=== PATIENT | female | born 1940 | race Caucasian/White ===

== ENCOUNTER 2016-11-06 09:20 | Day surgery (SDC) | payer MEDICARE, OTHER, SELFPAY ==
[2016-11-02 13:17] LABS: HEMATOCRIT 39.1 % (36.0-48.0); HEMOGLOBIN 12.6 g/dL (12.0-16.0)
[2016-11-02 13:25] LABS: BUN (BLOOD UREA NITROGEN) 15 MG/DL (6-23); CALCIUM, SERUM 8.5 MG/DL (8.5-10.4); CHLORIDE, SERUM 102 MMOL/L (96-112); CO2 (CARBON DIOXIDE) 31 MMOL/L (24-34); GFR AFRICAN AMERICAN 71 ML/MIN (>=60); GFR NON AFRICAN AMERICAN 61 ML/MIN (>=60); GLUCOSE, SERUM 88 MG/DL (60-99); POTASSIUM, SERUM 4.1 MMOL/L (3.5-5.3); SODIUM, SERUM 140 MMOL/L (135-148)
--- NOTE | ~2016-11-06 | OP ---
Record Of Operation [place] [address] [place]. [address] NAME: SUSSY HANNA : 36 STATUS : REG [facility] PAT#: [id number] AGE: 76 ADM/REG DATE : 11/06/16 MR#: [id number] REPORT SERV DATE: 11/06/16 DICTATED BY: NOLAN ALDANA DATE: 11/06/16 REPORT STATUS : Draft TRANSCRIBED BY: MODL DATE: 11/06/16 DATE OF PROCEDURE: 11/06/2016 PREOPERATIVE DIAGNOSES: 1. Recurrent left lung cancer after right primary lung cancer. 2. Need for central IV access. 3. Chronic obstructive pulmonary disease with home oxygen. 4. Congestive heart failure. 5. Morbid obesity. 6. Coronary artery disease. 7. Hyperlipidemia. 8. Hypertension. 9. Chronic pain. POSTOPERATIVE DIAGNOSES: 1. Recurrent left lung cancer after right primary lung cancer. 2. Need for central IV access. 3. Chronic obstructive pulmonary disease with home oxygen. 4. Congestive heart failure. 5. Morbid obesity. 6. Coronary artery disease. 7. Hyperlipidemia. 8. Hypertension. 9. Chronic pain. PROCEDURE: Right subclavian vein Port-A-Cath placement with intraoperative fluoroscopy. ANESTHESIA: MAC. SURGEON: Nolan Aldana M.D. INSURANCE ASSISTANT: Deshawn. COMPLICATIONS: None. DRAINS: None. ESTIMATED BLOOD LOSS: 10 mL. OPERATIVE TECHNIQUE: The patient was brought to the operative room and placed on the table in supine position. She had preoperative IV antibiotics. She had sequential hose in place. She voided prior to the procedure. She underwent adequate MAC anesthesia and was prepped and draped in a sterile fashion with the shoulder roll paralleled with her spine. Local anesthesia was instilled to complete a field block in the right subclavian space. A needle was used to access the right subclavian vein, and a wire was passed and confirmed to be in the central venous system with fluoroscopy. A 15 blade knife was used to make a transverse Record Of Operation [place] [address] [facility] [place]. [address] NAME: SUSSY HANNA : 36 STATUS : REG [facility] [place] PAT#: [id number] AGE: 76 ADM/REG DATE : 11/06/16 MR#: [id number] REPORT SERV DATE: 11/06/16 DICTATED BY: NOLAN ALDANA DATE: 11/06/16 REPORT STATUS : Draft TRANSCRIBED BY: MODL DATE: 11/06/16 incision at the wire insertion site. This was carried down to the anterior fascia using electrocautery. A pocket was then created inferiorly on the chest wall. The preassembled and flush catheter was then fixed to the chest wall with interrupted three-point fixation with Ethibond sutures. It was then cut to length with the aid of fluoroscopy. The dilator and sheaths were placed over the wire and the wire and dilator removed. The catheter was then advanced fully through the sheath and the sheath was peeled away. The catheter reservoir was then accessed and aspirated and was noted to aspirate and was flushed with heparinized solution. It was in good position with intraoperative fluoroscopy. The wound was irrigated. There was no evidence of any bleeding. The subcutaneous tissues were reapproximated using running 3-0 Vicryl suture followed by a running Monocryl subcuticular stitch. Dermabond was applied, and she was taken to recovery room for postoperative monitoring and chest x-ray. /HUMBERTO Nolan Aldana M.D. / [id number] CC: Nina Bright M.D. C. Samuel Ledford, M.D. Benjamin R Nadeau, MD Jonathan T Whaley, MD
[~2016-11-06 09:20] MED LIST: ACCUNE1 INH; ADVAIR250 INH; ALBUTEROL0.63 MG/3 INH; ALLEGRA180 PO; AMBIEN CR12.5 MG PO; AVAP150 PO; AVAPRO300 MG PO; CELEBREX2 PO; COMP10B PO; COREG6 PO; DURA25 TOP; DURICEF PO; GAS-X80 MG PO; HUMI PO; K-TABS10 MEQ PO; KDUR10 PO; KLOR-CON M1010 MEQ PO; L40 PO; LIPITOR40 PO; METPAKSF PO; MUCINEX600 MG PO; MYCOSCROI TOP; NASONEX NAS; NYSTOP100000 MG TOP; OXYCON10 PO; P10 PO; PERCOCET1 TA4 PO; PRILOSEC40 MG PO; PROAIR HFA INH; REFRESH OP; ROXICODONE15 MG PO; ROXICODONE30 MG PO; SINGULAIR1 PO; SPIRIVA INH; SPIRO25 PO; V120 PO; VOLTAREN1 % TOP; ZOFRAN8 PO; [UNRECOGNIZED DRUG - OTHER]; [UNRECOGNIZED DRUG - OTHER] T
== END 2016-11-06 17:11 | disposition home or self-care (01) ==
LOC: SDC 09:20
PROVIDERS: Surgery
PROC: 05H533Z Insertion of Infusion Device into Right Subclavian Vein, Percutaneous Approach (ICD-10-PCS; 2016-11-06)
PROC: B516ZZA Fluoroscopy of Right Subclavian Vein, Guidance (ICD-10-PCS; 2016-11-06)
PROC: 0JH60XZ Insertion of Tunneled Vascular Access Device into Chest Subcutaneous Tissue and Fascia, Open Approach (ICD-10-PCS; principal; 2016-11-06 12:00)
DX: C34.92 Malignant neoplasm of unspecified part of left bronchus or lung (principal); Z85.118 Personal history of other malignant neoplasm of bronchus and lung; J44.9 Chronic obstructive pulmonary disease, unspecified; I11.0 Hypertensive heart disease with heart failure; I50.9 Heart failure, unspecified; I25.10 Atherosclerotic heart disease of native coronary artery without angina pectoris; I25.2 Old myocardial infarction; N20.0 Calculus of kidney; G89.29 Other chronic pain; M54.9 Dorsalgia, unspecified; M19.90 Unspecified osteoarthritis, unspecified site; K21.9 Gastro-esophageal reflux disease without esophagitis; E78.5 Hyperlipidemia, unspecified; E66.01 Morbid (severe) obesity due to excess calories; Z68.41 Body mass index [BMI] 40.0-44.9, adult; Z99.81 Dependence on supplemental oxygen; Z87.891 Personal history of nicotine dependence; Z80.1 Family history of malignant neoplasm of trachea, bronchus and lung; Z88.1 Allergy status to other antibiotic agents; Z88.6 Allergy status to analgesic agent; Z79.1 Long term (current) use of non-steroidal anti-inflammatories (NSAID); Z79.51 Long term (current) use of inhaled steroids; Z79.891 Long term (current) use of opiate analgesic; Z79.899 Other long term (current) drug therapy; Z98.49 Cataract extraction status, unspecified eye; Z96.1 Presence of intraocular lens; Z90.89 Acquired absence of other organs; Z87.01 Personal history of pneumonia (recurrent); Z96.653 Presence of artificial knee joint, bilateral; Z98.890 Other specified postprocedural states; Z87.81 Personal history of (healed) traumatic fracture; Z90.49 Acquired absence of other specified parts of digestive tract; Z90.710 Acquired absence of both cervix and uterus; Z92.21 Personal history of antineoplastic chemotherapy
CPT/HCPCS: 71010; 76000; 77001; 80048; 85014; 85018; 93005; C1751; J0690; J2250